=== PATIENT | male | born 1975 | race Caucasian/White ===

== ENCOUNTER 2017-05-12 07:50 | Day surgery (SDC) | payer BC ==
[~2017-05-12] VITALS: Ht 182.9 cm; Wt 114.8 kg
[~2017-05-12 07:50] MED LIST: ADVAIR 100-501 EACH INH; ALBUTEROL2.5 MG/0.5 INH; CIPROFLOXACIN500 MG PO; IBUPROFEN800 MG PO; IPRATROPIU0.2 MG/1 M IH; PREDNISONE20 MG PO; PREDNISONE50 MG PO; PROAIR HFA8.5 GM IH; TYLENOL EXTRA500 MG PO; ZANTAC150 MG PO
[2017-05-12] MEDS ORDERED: VENTOLIN HFA18 GM INH (08:04)
--- NOTE | 2017-05-12 09:30 | NUR ---
05/12/17 0930 Shankar Mares 0918: PT ARRIVED TO PACU WITH RN AND DEVELOPER ADVISOR. PT WITH NATURAL AIRWAY, UNASSISTED. DROWSY BUT RESPONDS TO VOICE. DENIES PAIN AND NAUSEA. O2 100% ON 6L MASK.
--- NOTE | 2017-05-19 06:10 | OR ---
[facility] [address] [place], [place] [address] Signed DATE OF OPERATION: 05/12/2017 SURGEON: Nasima Jernigan MD PREOPERATIVE DIAGNOSIS: Left posterior cervical subcutaneous mass (3 cm). POSTOPERATIVE DIAGNOSIS: Left posterior cervical subcutaneous mass (3 cm). PROCEDURE: Excision of subcutaneous cervical mass. ESTIMATED BLOOD LOSS: None. INDICATIONS: Cuco is a 41-year-old gentleman, who over the last 2 to 3 years has noticed an increasing subcutaneous mass in the left posterior triangle in his neck. It is at least the size of a golf ball and not larger. He cannot remember if it has ever been infected or drained. He said it is painful try to wear his shirt and it has been bothering him and so he finally decided to have it addressed. His primary care provider asked him to see me as a general surgeon. In the office, I explained to Cuco the nature of a subcutaneous mass. These are either a sebaceous cyst or lipoma. They are notoriously difficult to remove in the neck. Also, he is extremely anxious at his baseline. We decided to bring him over the hospital under IV sedation with local anesthetic for the surgery. He has a lot of asthma and COPD. Therefore, we elected not to use an endotracheal tube or an LMA. I met with uCco and his in our preop area. We could all identify the lesion easily and marked that appropriately. PROCEDURE NOTE: After talking with our anesthesia provider, then we took him into our operating room and placed him in the right lateral decubitus position. He was given IV sedation per our nurse compounding scaler. He was given appropriate padding and monitoring. He was given preoperative antibiotics along with subcutaneous heparin. SCDs were utilized. He was then prepped and draped in the usual sterile fashion. After this, local anesthetic was copiously injected over around and underneath the lesion. A standard transverse incision was made over the lesion and carried down around the lesion bluntly and with the cautery. It has the appearance of a large sebaceous cyst. The entire cyst wall was not excised. The lesion was passed off the field for pathologic review. The wound was Electronically Signed By: NASIMA JERNIGAN MD 05/19/17 0610 PATIENT NAME: CUCO VENCES OPERATIVE REPORT DATE OF : 79 REPORT #: [id number] PHYSICIAN: NASIMA JERNIGAN MD PCP: CANDELARIO SIEGEL PA-C REPORT IS CONFIDENTIAL AND NOT TO BE RELEASED WITHOUT AUTHORIZATION [facility] [address] [place] [id number] Signed then irrigated and suctioned out until clear. The dermis was reapproximated with interrupted 3-0 subcuticular Monocryl sutures. The skin edges were reapproximated with running 6-0 fast absorbing plain gut suture. Dry gauze and tape were then applied. Francisco was then transferred over to his hospital bed and taken into recovery room in stable condition. Nasima Jernigan MD ALB/LORETTAL /[id number] cc: CHANDAN Roman MD Copies: CANDELARIO SIEGEL PA-C, ANDREW L MD ~ Electronically Signed By: NASIMA JERNIGAN MD 05/19/17 0610 PATIENT NAME: CUCO VENCES OPERATIVE REPORT DATE OF : 79 REPORT #: [id number] PHYSICIAN: NASIMA JERNIGAN MD PCP: CANDELARIO SIEGEL PA-C REPORT IS CONFIDENTIAL AND NOT TO BE RELEASED WITHOUT AUTHORIZATION
== END 2017-05-12 10:15 | disposition home or self-care (01) ==
LOC: DS 07:50 → OPS 07:50 → DS 08:45
PROVIDERS: Colon & Rectal Surgery
PROC: 0JB50ZZ Excision of Left Neck Subcutaneous Tissue and Fascia, Open Approach (ICD-10-PCS; principal; 2017-05-12 08:45)
DX: L72.0 Epidermal cyst (principal); J45.909 Unspecified asthma, uncomplicated; G47.33 Obstructive sleep apnea (adult) (pediatric); F17.210 Nicotine dependence, cigarettes, uncomplicated; Z98.890 Other specified postprocedural states; Z79.899 Other long term (current) drug therapy
CPT/HCPCS: 00300; J0690; J1644; J2250; J2405; J2704; J3010; J7120

== ENCOUNTER 2022-06-13 02:10 | Emergency (ER) | payer BC ==
[~2022-06-13] VITALS: Ht 182.9 cm; Wt 115.7 kg
[~2022-06-13 02:10] MED LIST changes: +VENTOLIN HFA18 GM INH
[2022-06-13] MEDS ORDERED: OMEPRAZOLE20 MG PO (02:18)
[2022-06-13] MEDS ORDERED: FLUTICASONE-SA1 EAC4 INH (02:18)
[2022-06-13] MEDS ORDERED: HYDROXYZINE HCL25 MG PO (02:19)
[2022-06-13] MEDS ORDERED: MONTELUKAST SOD10 MG PO (02:19)
--- NOTE | 2022-06-13 15:09 | EKG ---
[facility] [address] [facility] [place] [address] Signed Normal sinus rhythm Normal ECG No previous ECGs available Confirmed by FAMILIA BARFIELD MD ([id number]) on 06/13/2022 3:09:25 PM Electronically Signed By: FAMILIA BARFIELD MD 06/13/22 1509 PATIENT NAME: JACKIE VENECS Electrocardiogram DATE OF : 79 PHYSICIAN: FAMILIA BARFIELD MD REPORT #: [id number] REPORT IS CONFIDENTIAL AND NOT TO BE RELEASED WITHOUT AUTHORIZATION
== END 2022-06-13 03:57 | disposition home or self-care (01) ==
LOC: ED 02:10
DX: R20.2 Paresthesia of skin (principal); J45.909 Unspecified asthma, uncomplicated; F17.200 Nicotine dependence, unspecified, uncomplicated; Z79.899 Other long term (current) drug therapy
CPT/HCPCS: 36415; 70450; 71045; 80053; 84484; 85025; 85610; 85730; 93005; 93010; 99285-25